=== PATIENT | male | born 1990 | race Caucasian/White ===

== ENCOUNTER 2020-12-10 18:23 | Observation (INO) | payer OTHER ==
[~2020-12-10] VITALS: Ht 22.9 cm; Wt 97.7 kg
[2020-12-10 19:00] LABS: COLLECTION METHOD CLEAN CATCH
[2020-12-10 19:05] LABS: BASO # 0.1 (0.0-0.2); BASO % 0.3 % (0.0-2.0); EOS # 0.1 (0.0-0.7); EOS % 0.4 % (0-4.0); HEMATOCRIT 43.9 % (42.0-52.0); HEMOGLOBIN 14.9 g/dl (13.5-18.0); LYMPH # 4.6 (1.2-3.4); LYMPH % 29.8 % (20.0-51.0); MEAN CELL VOLUME 86 fl (80.0-100.0); MEAN CORPUSCULAR HEMOGLOBIN 29 pg (27.0-31.0); MEAN CORPUSCULAR HGB CONC 34 g/dl (33.0-37.0); MEAN PLATELET VOLUME 8.8 fl (7.4-10.4); MONO # 0.6 (0.1-0.6); PLATELET COUNT 281 K/mm3 (130-400); REDCELL DISTRIBUTION WIDTH-CV 12.9 % (11.5-14.5)
[2020-12-10 19:09] LABS: PH 5 (5-8); SQUAMOUS EPITHELIAL None Seen /hpf; URINE APPEARANCE Clear; URINE BACTERIA None Seen /hpf; URINE BILIRUBIN Negative (NEGATIVE); URINE BLOOD Negative (NEGATIVE); URINE COLOR Yellow; URINE GLUCOSE Negative (NEGATIVE); URINE KETONE Negative (NEGATIVE); URINE LEUKOCYTE ESTERASE Negative (NEGATIVE); URINE NITRATE Negative (NEGATIVE); URINE PROTEIN(semi-quant) Negative (NEGATIVE); URINE RBC 0-2 /hpf; URINE UROBILINOGEN Negative (NEGATIVE)
[2020-12-10 19:16] LABS: ALANINE AMINOTRANSFERASE 31 U/L (4-49); ALBUMIN 4.8 gm/dL (3.5-5.0); ALKALINE PHOSPHATASE 56 U/L (50-136); ANION GAP 12 mmol/L (7-16); AST,SGOT 29 U/L (15-37); BILIRUBIN,TOTAL 0.5 mg/dL (0.0-1.0); BLOOD UREA NITROGEN 17 mg/dL (9-20); CALCIUM 9.7 mg/dL (8.4-10.2); CARBON DIOXIDE 28 mmol/L (22-30); CHLORIDE 101 mmol/L (98-107); CREATININE, serum 1.28 (0.66-1.25); GLUCOSE 117 mg/dL (74-106); LIPASE 59 U/L (23-300); POTASSIUM 3.6 mmol/L (3.4-5.0); SODIUM 141 mmol/L (137-145); TOTAL PROTEIN 7.5 gm/dL (6.4-8.2)
[2020-12-10 19:19] LABS: C-REACTIVE PROTEIN < 0.5 mg/dL (0.0-0.9)
[2020-12-10 22:36] VITALS: BP 120/71; PULSE 88; TEMP 99.6
[2020-12-10 22:50] VITALS: BP 120/70; PULSE 96
--- NOTE | 2020-12-10 22:57 | NUR ---
Patient up from PACU at 2235. Started on post op vitals. Temperature is 99.6. PAtient has 3 lap sites on his abdomen with bandaids. Oriented to room and call light. Admission and med rec complete. Patient given ice cream and a sandwich box. No other needs at this time.
[2020-12-10 23:05] VITALS: BP 118/70; PULSE 93
[2020-12-10 23:20] VITALS: BP 122/64; PULSE 95
[2020-12-10 23:50] VITALS: BP 129/62; PULSE 81; TEMP 99.3
[2020-12-11 00:20] VITALS: BP 119/64; PULSE 80
[2020-12-11 01:20] VITALS: BP 123/59; PULSE 81; TEMP 98.5
[2020-12-11 02:20] VITALS: BP 118/56; PULSE 67
--- NOTE | 2020-12-11 02:23 | NUR ---
Patient got up to the bathroom. Experienced some light headedness. Steady gait.
[2020-12-11 04:19] VITALS: BP 112/53; PULSE 64; TEMP 98.6
--- NOTE | 2020-12-11 07:53 | NUR ---
PT UP TO BR VOIDED AND THEN AMBULATED HALLS INDEPENDENTLY. PT EATING AND DRINKING WITH NO N/V. VSS, ASSESSMENTS COMPLETE. PT HAS MET CRITERIA FOR DISCHARGE. WILL NOTIFY PHYSICIAN FOR ORDERS.
[2020-12-11 08:03] VITALS: BP 124/68; PULSE 73; TEMP 98.1
--- NOTE | 2020-12-11 09:04 | NUR ---
NICOLE met with the patient to discuss discharge plan. The patient lives in [place] with his , Pattie ([id number]#[phone]), and their four children. He reports independence with ADLs and does not have any DME. The patient states that he is in the process of getting established with a PCP at [facility]. He could not recall the name of the PCP that he is being set up with. His receives his medications at [facility] and he reports no difficulties obtaining his meds. The patient does not have a DPOA-HC, but he was interested in obtaining a form. NICOLE provided. The patient plans to return home with his family upon discharge. No additional needs at this time.
[2020-12-11] MEDS ORDERED: NORCO 325 MG-51 TAB PO (09:10)
--- NOTE | 2020-12-11 10:20 | NUR ---
DISCHARGE INSTRUCTIONS REVIEWED WITH PT AND . QUESTIONS SOLICITED AND ANSWERED. PT LEFT AMBULATORY.
--- NOTE | 2020-12-11 10:25 | NUR ---
Initial visit; Patient thanked Manager Style for visit and offering prayer. Patient states he is sore but recovering ok from his surgical procedure.
== END 2020-12-11 10:27 | disposition home or self-care (01) ==
LOC: COL.ER 18:23 → SURG 20:12
PROVIDERS: Nurse Practitioner; ADMIT Surgery
DX: K35.80 Unspecified acute appendicitis (principal); K21.9 Gastro-esophageal reflux disease without esophagitis; J45.909 Unspecified asthma, uncomplicated
CPT/HCPCS: G0378; J1170; J1885; J2405; J2543; J2704; J3010; J7030; Q9967